=== PATIENT | female | born 1995 | race Caucasian/White ===

== ENCOUNTER 2024-07-25 12:46 | Outpatient (RCR) | payer OTHER, SELFPAY ==
[2024-07-26] MEDS: RHO(D) IMMUNE GLOBULIN 300 MCG/2 ML SYRINGE IM (11:06)
== END 2024-10-23 23:59 | disposition home or self-care (01) ==
LOC: ANHLAB 12:46
PROVIDERS: Visit Provider Obstetrics & Gynecology
DX: Z29.13 Encounter for prophylactic Rho(D) immune globulin (principal); O36.0190 Maternal care for anti-D [Rh] antibodies, unspecified trimester, not applicable or unspecified; Z3A.00 Weeks of gestation of pregnancy not specified
CPT/HCPCS: 36415; 85461; 86850; 86880; 86900; 86901; 90384; 96372; J2790

== ENCOUNTER 2024-10-10 00:47 | Inpatient (IN) | payer OTHER, SELFPAY ==
[2024-10-10] VITALS (213 sets, daily range): BP systolic 87–130; BP diastolic 42–88; PULSE 65–186; RESP 16–18; TEMP 36.7–37.1; O2SAT 79–100; BMI 29.4
[2024-10-10 01:45] LABS: Basophils Absolute Auto 0.1 K/mm3 (0.0-0.1); Basophils Percent Auto 0.5 % (0.2-1.2); Eosinophils Absolute Auto 0.1 K/mm3 (0-0.3); Eosinophils Percent Auto 0.9 % (0-4.4); Hematocrit 33.4 % (37.0-47.0); Hemoglobin 10.9 g/dL (12.0-15.0); Immature Granulocyte Absolute 0.08 K/mm3 (0.00-0.031); Immature Granulocyte Percent A 0.8 % (0-0.5); Lymphocytes Absolute Auto 2.44 K/mm3 (0.9-3.2); Lymphocytes Percent Auto 24.6 % (18.3-44.2); Mean Corpuscular HGB Conc 32.6 g/dl (32-36); Mean Corpuscular Hemoglobin 26.4 pg (26-34); Mean Corpuscular Volume 80.9 fl (80-100); Mean Platelet Volume 11.1 fl (7.4-10.4); Monocytes Absolute Auto 0.8 K/mm3 (0.1-0.6); Monocytes Percent Auto 7.8 % (2.6-8.5); Neutrophils Absolute Auto 6.5 K/mm3 (1.3-6.7); Neutrophils Percent Auto 65.4 % (45.5-73.1); Platelet Count Result 174 k/mm3 (150-375); Red Blood Count 4.13 M/mm3 (4.2-5.4); Red Cell Distribution Width 12.1 % (11.5-14.5); White Blood Count 9.9 K/mm3 (4.5-10.0)
--- NOTE | 2024-10-10 01:50 | LDADM ---
This patient, Sherri Duckworth, was admitted to Labor/Delivery/Recovery 105 on 10/10/24 at 00:47. Plans for labor, pain management and were discussed with patient. Patient/family oriented to hospital policies and general routines including ID bracelet, bed and alarms, visiting hours, pain management, procedures, bathroom and other care routines, personal items, smoking policy, room service/diet and guest tray routines, security routines, and visiting hours. Patient/Family are encouraged to report perceived risks to care and to ask questions if they do not understand what they are told or what they should do. See OBIX for further documentation.
[2024-10-10] MEDS: LACTATED RINGERS 1,000 ML 125 ML IV CONT ×2 (02:10→10:31)
[2024-10-10] MEDS: AMPICILLIN 2 GM/NS 100 ML 2 GM/100 ML BAG IVPB (02:11)
[2024-10-10 02:38] LABS: HIV 1/2 Ab P24 Ag Result Negative (Negative)
[2024-10-10 02:42] LABS: Hepatitis B Surface Antigen Negative (Negative)
[2024-10-10 04:16] LABS: Rapid Plasma Reagin Non-Reactive (NonReactive)
[2024-10-10] MEDS: OXYTOCIN 30 UNITS/NS 500 ML 30 UNITS/500 ML BAG IV CONT (05:40)
--- NOTE | 2024-10-10 05:56 | P.HP_ITS ---
H&P: HPI History of Present Illness Date/Time: 10/10/24 05:56 Chief Complaint: ruptured membranes at term Narrative: 29-year-old 2 para 1 whose last menstrual period was 01/01/2024, EDC is 10/20/2024, confirmed by 10 week ultrasound, presents at 38 weeks gestation with spontaneous rupture membranes prior to admission. She had abnormal NIPT was consulted with Maternal there was question of abnormal chromosomes. She is positive for group B strep which she is Rh negative and received RhoGAM at 28 weeks. [facility] Social History Social History Smoking status: Never smoker Substance use: never Do You Feel Safe in your Home?: Yes Lack of Transportation: No Lack of Food: Never True Current Housing: I Have Housing Concerned About Future Housing: No Difficulty Paying Gas/Electric Bills: No Difficulty Paying for Meds: No Currently Unemployed: No Education: Master's Degree or Higher Difficulty w/ Childcare or Family Care: No Spiritual care concerns: No Meds Home Medications and Allergies Home Medications Medication Instructions Recorded Confirmed Type prenat.vits,petty,ynh-fyol-swhac 1 tablet 09/21/24 History Allergies Allergy/AdvReac Type Severity Reaction Status Date / Time No Known Allergies Allergy Unknown Verified 03/30/16 13:21 Vital Signs Vital Signs - 24 hr 10/10/24 01:10 10/10/24 01:15 10/10/24 01:20 Pulse Rate Blood Pressure Pulse Oximetry 99 100 98 Oxygen Delivery 10/10/24 01:25 10/10/24 01:30 10/10/24 01:35 Pulse Rate Blood Pressure Pulse Oximetry 98 98 98 Oxygen Delivery 10/10/24 01:40 10/10/24 01:45 10/10/24 01:47 Pulse Rate 95 Blood Pressure 102/72 Pulse Oximetry 98 99 Oxygen Delivery 10/10/24 01:50 10/10/24 01:55 10/10/24 02:00 Pulse Rate 103 H Blood Pressure 101/71 Pulse Oximetry 100 99 99 Oxygen Delivery 10/10/24 02:06 10/10/24 02:08 10/10/24 02:13 Pulse Rate Blood Pressure Pulse Oximetry 99 98 98 Oxygen Delivery 10/10/24 02:18 10/10/24 02:23 10/10/24 02:28 Pulse Rate Blood Pressure Pulse Oximetry 97 97 97 Oxygen Delivery 10/10/24 02:30 10/10/24 02:33 10/10/24 02:35 Pulse Rate 107 H Blood Pressure 115/86 Pulse Oximetry 99 99 Oxygen Delivery 10/10/24 02:40 10/10/24 02:49 10/10/24 02:54 Pulse Rate Blood Pressure Pulse Oximetry 100 98 98 Oxygen Delivery 10/10/24 02:59 10/10/24 03:00 10/10/24 03:04 Pulse Rate 87 Blood Pressure 109/69 Pulse Oximetry 98 98 Oxygen Delivery 10/10/24 03:09 10/10/24 03:14 10/10/24 03:19 Pulse Rate Blood Pressure Pulse Oximetry 97 98 98 Oxygen Delivery 10/10/24 03:24 10/10/24 03:29 10/10/24 03:30 Pulse Rate 76 Blood Pressure 105/49 L Pulse Oximetry 98 98 Oxygen Delivery 10/10/24 03:34 10/10/24 03:39 10/10/24 03:44 Pulse Rate Blood Pressure Pulse Oximetry 98 99 98 Oxygen Delivery 10/10/24 03:49 10/10/24 03:54 10/10/24 03:59 Pulse Rate Blood Pressure Pulse Oximetry 98 99 99 Oxygen Delivery 10/10/24 04:00 10/10/24 04:04 10/10/24 04:09 Pulse Rate 74 Blood Pressure 94/49 L Pulse Oximetry 98 99 Oxygen Delivery 10/10/24 04:14 10/10/24 04:19 10/10/24 04:24 Pulse Rate Blood Pressure Pulse Oximetry 100 98 98 Oxygen Delivery 10/10/24 04:29 10/10/24 04:30 10/10/24 04:34 Pulse Rate 93 Blood Pressure 117/72 Pulse Oximetry 98 99 Oxygen Delivery 10/10/24 04:39 10/10/24 04:44 10/10/24 04:49 Pulse Rate Blood Pressure Pulse Oximetry 98 98 98 Oxygen Delivery 10/10/24 04:54 10/10/24 04:59 10/10/24 05:00 Pulse Rate 93 Blood Pressure 112/74 Pulse Oximetry 99 98 Oxygen Delivery 10/10/24 05:04 10/10/24 05:09 10/10/24 05:14 Pulse Rate Blood Pressure Pulse Oximetry 99 98 99 Oxygen Delivery 10/10/24 05:36 10/10/24 05:41 10/10/24 05:46 Pulse Rate 93 Blood Pressure 105/61 Pulse Oximetry 98 99 98 Oxygen Delivery 10/10/24 05:51 10/10/24 02:14 Pulse Rate Blood Pressure Pulse Oximetry 98 Oxygen Delivery Room Air Exam Const: General: cooperative, healthy appearing and comfortable Nutritional Appearance: average body habitus Orientation/consciousness: oriented to person, oriented to place and oriented to time Resp: Effort & Inspection: normal respiratory effort Cardio: Rate: regular rate Rhythm: regular rhythm Heart sounds: S1 normal heart sound present and S2 normal heart sound present GI: Inspection: normal to inspection ( Gravid soft uterus) : Speculum Exam - Vagina: normal appearance of the vagina Speculum Exam - Cervix: normal appearance of the cervix ( cervix 3cm with clear fluid heart tones reassuring) H&P: Results Labs Labs: Short CBC 10/10/24 Range/Units 01:37 WBC 9.9 (4.5-10.0) K/mm3 Hgb 10.9 L (12.0-15.0) g/dL Hct 33.4 L (37.0-47.0) % Plt Count 174 (150-375) k/mm3 Assessment and Plan Assessment and plan (1) Term : Code(s): Z34.90 - Encounter for supervision of normal , unspecified, unspecified trimester Status: Acute (2) Spontaneous rupture of membranes: Status: Acute (3) Positive testing for group B Streptococcus: Code(s): B95.1 - Streptococcus, group B, as the cause of diseases classified elsewhere Status: Acute (4) 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 Spontaneous vaginal delivery is expected. She is an epidural candidate.
[2024-10-10] MEDS: AMPICILLIN 1 GM/NS 50 ML 1 GM/50 ML BAG IVPB ×2 (06:27→10:20)
[2024-10-10 07:56] LABS: OBXCEM ROM Plus Positive (Negative)
--- NOTE | 2024-10-10 09:23 | P.PNAN_ITS ---
Anes - Eval Pre Procedure Procedure: labor epidural Date/Time: 10/10/24 09:23 Surgeon: Jenni Dunbar Preop Diagnosis: Pain during labor Pre Op Diagnosis: Leaking Patient Data Age: 29 Gender: F Height: 1.68 m Weight: 82.7 kg Last Vital Signs Temp 36.8 C 10/10/24 08:30 Pulse 88 10/10/24 09:00 Resp 16 10/10/24 08:30 BP 120/75 10/10/24 09:00 Pulse Ox 95 10/10/24 09:19 O2 Del Method Room Air 10/10/24 02:14 Allergies Allergy/AdvReac Type Severity Reaction Status Date / Time No Known Allergies Allergy Unknown Verified 03/30/16 13:21 Home Medications Medication Instructions Recorded Confirmed Type prenat.vits,petty,jvv-taui-zqiff 1 tablet 09/21/24 History Laboratory Tests 10/10/24 10/10/24 00:58 01:37 WBC 9.9 K/mm3 (4.5-10.0) RBC 4.13 L M/mm3 (4.2-5.4) Hgb 10.9 L g/dL (12.0-15.0) Hct 33.4 L % (37.0-47.0) MCV 80.9 fl (80-100) MCH 26.4 pg (26-34) MCHC 32.6 g/dl (32-36) RDW 12.1 % (11.5-14.5) Plt Count 174 k/mm3 (150-375) MPV 11.1 H fl (7.4-10.4) Immature Gran % (Auto) 0.8 H % (0-0.5) Neut % (Auto) 65.4 % (45.5-73.1) Lymph % (Auto) 24.6 % (18.3-44.2) [place] % (Auto) 7.8 % (2.6-8.5) Eos % (Auto) 0.9 % (0-4.4) Baso % (Auto) 0.5 % (0.2-1.2) Lymph # (Auto) 2.44 K/mm3 (0.9-3.2) [place] # (Auto) 0.8 H K/mm3 (0.1-0.6) Eos # (Auto) 0.1 K/mm3 (0-0.3) Baso # (Auto) 0.1 K/mm3 (0.0-0.1) Abs Immat Gran (auto) 0.08 H K/mm3 (0.00-0.031) Absolute Neuts (auto) 6.5 K/mm3 (1.3-6.7) Absolute Nucleated RBC 0.000 K/mm3 (0.0-0.012) Nucleated RBC % 0.0 % (0.0-0.2) Membranes Rupture Rom plus positive (Negative) RPR Non-reactive (NonReactive) Hep Bs Antigen Negative (Negative) HIV 1&2 Ab/P24 Ag 4thGn Negative (Negative) Blood Type A Negative Antibody Screen Negative Patient hx anesthesia problems: none Family hx anesthesia problems: none Results Review: All pre-operative results and documents have been reviewed as part of the pre- operative evaluation. [facility] Social History Social History Smoking status: Never smoker Substance use: never Do You Feel Safe in your Home?: Yes Lack of Transportation: No Lack of Food: Never True Current Housing: I Have Housing Concerned About Future Housing: No Difficulty Paying Gas/Electric Bills: No Difficulty Paying for Meds: No Currently Unemployed: No Education: Master's Degree or Higher Difficulty w/ Childcare or Family Care: No Spiritual care concerns: No Exam Day of Procedure 10/10/24 09:23 Patient weight: normal Heart: regular rate and rhythm Lungs: clear to auscultation Airway: Mallampati scale class II Neurological: alert and oriented
[2024-10-10] MEDS: ONDANSETRON INJ 4 MG/2 ML VIAL IV PUSH (11:50)
--- NOTE | 2024-10-10 14:16 | P.PCNOB_ITS ---
OB - Vaginal Delivery Note Procedure Delivery date: 10/10/24 Events: Positive Group B Strep (GBS) Delivery monitor: External FHT and Internal Uterine Route of delivery: Episiotomy description: None Laceration Description: None Quantitative Blood Loss (ml): 61 Anesthesia type: Epidural Disposition: Floor Complications: No immediate complications Narrative: Patient was admitted In labor labor early a.m. 10/10/2024. She had artificial rupture membranes performed and Pitocin augmentation begun. She had ruptured about 12:00 p.m. in the a.m.. she progressed unremarkable 1st stage of labor and got to completely dilated when she was complete she pushed delivered head spontaneously in the JOEL position. Anterior posterior shoulder delivered spontaneously. Cord clamped and cut and placed in warmer given Apgars of 8 [id number] 9 [id number]. Cord blood was then drawn placenta delivered intact spontaneously. 20units of Pitocin were then placed in the IV to help firm the uterus. The vagina was inspected noted be free of tears or lacerations blood loss was estimated at61cc. All sponge, needle, instrument counts were correct. There were no immediate complications. She did receive 2 doses of ampicillin prophylactically for group B strep [place] Baby Date of : 10/10/24 Time of : 14:08 Gestational Age by Date: 38 gender: Male presentation: vertex position: Right Occiput Anterior Placenta delivery description: Spontaneous Cord Vessel Description: 3 Vessels score one minute: 8 score five minutes: 9 Narrative: ampicillin x2 for group B strep
--- NOTE | 2024-10-10 14:19 | P.DS_ITS ---
DS: Admitting Diagnosis Discharge Date 10/12/2024 Admitting Diagnosis term positive group B strep DS: Discharge Diagnosis Discharge Diagnosis (1) Positive testing for group B Streptococcus: Code(s): B95.1 - Streptococcus, group B, as the cause of diseases classified elsewhere Status: Acute (2) Chromosomal abnormality: Code(s): Q99.9 - Chromosomal abnormality, unspecified Status: Acute (3) Spontaneous rupture of membranes: Status: Acute (4) Term : Code(s): Z34.90 - Encounter for supervision of normal , unspecified, unspecified trimester Status: Acute DS: Summary Hospital Course Reason for hospitalization: patient was admitted in active labor early a.m. 10/10/2024 and underwent spontaneous vaginal delivery at 2:08 p.m. with epidural anesthesia she has received gas would group B strep prophylaxis. Hospital Course: Patient's hospital course unremarkable she remained afebrile. She was up, voiding without difficulty, eating regular diet, ambulating, and generally without complaints. Time Spent with Patient Time attestation: Total time spent providing and/or coordinating discharge services: Exam Const: General: cooperative, healthy appearing and comfortable Nutritional Appearance: average body habitus Orientation/consciousness: oriented to person, oriented to place and oriented to time HENMT: Head: normal to inspection Resp: Effort & Inspection: normal respiratory effort Cardio: Rate: regular rate Rhythm: regular rhythm Heart sounds: S1 normal heart sound present and S2 normal heart sound present GI: Inspection: normal to inspection ( Fundus firm below the umbilicus) DS: Data Data Completed and Pending Labs on day of discharge: Labs from last 24 hours 10/10/24 10/10/24 01:37 00:58 WBC 9.9 RBC 4.13 L Hgb 10.9 L Hct 33.4 L MCV 80.9 MCH 26.4 MCHC 32.6 RDW 12.1 Plt Count 174 MPV 11.1 H Immature Gran % (Auto) 0.8 H Neut % (Auto) 65.4 Lymph % (Auto) 24.6 [place] % (Auto) 7.8 Eos % (Auto) 0.9 Baso % (Auto) 0.5 Lymph # (Auto) 2.44 [place] # (Auto) 0.8 H Eos # (Auto) 0.1 Baso # (Auto) 0.1 Abs Immat Gran (auto) 0.08 H Absolute Neuts (auto) 6.5 Absolute Nucleated RBC 0.000 Nucleated RBC % 0.0 Membranes Rupture Rom plus positive RPR Non-reactive Hep Bs Antigen Negative HIV 1&2 Ab/P24 Ag 4thGn Negative Blood Type A Negative Antibody Screen Negative Discharge Plan Discharge Attending physician on discharge: Asif Paul Discharging Clinician: Asif Paul Patient Disposition: Home, Self-Care Activity: may shower, no straining and pelvic rest Diet: heart healthy Wound Care Instructions: follow printed instructions Patient Instructions: Antibiotic Form Stand Alone Forms: General Discharge Information Follow-up/Referrals: Asif Paul MD [Physician] - Discharge Medications: Continued Vitamin Tablet 1 tablet Date of admission: 10/10/24 00:47 Primary Care Provider: UNKNOWN,DOCTOR Admitting Provider: Asif Paul Attending physician on admission: Asif Paul Condition: Stable
[2024-10-10] MEDS: OXYTOCIN 30 UNITS/NS 500 ML 30 UNITS/500 ML BAG 125 UNITS IV CONT (15:00)
--- NOTE | 2024-10-10 17:00 | OBPPTRN ---
Patient transferred to post room # 280 via wheelchair. Support person present. Oriented to unit, room, information board, rooming in, admission packet and security measures. Patient verbalizes understanding.
[2024-10-10] MEDS: IBUPROFEN 600 MG TABLET PO (18:37)
[2024-10-10] MEDS: ACETAMINOPHEN 325 MG TABLET 650 MG PO (18:37)
[2024-10-11 00:15] VITALS: BP 116/74; PULSE 88; RESP 16; TEMP 36.9; O2SAT 100
[2024-10-11] MEDS: ACETAMINOPHEN 325 MG TABLET 650 MG PO ×3 (00:34→21:34)
[2024-10-11] MEDS: IBUPROFEN 600 MG TABLET PO ×3 (00:34→21:34)
[2024-10-11 05:57] LABS: Hematocrit 32.5 % (37.0-47.0)
--- NOTE | 2024-10-11 06:38 | P.PNOB_ITS ---
OB - PN: Subj Subjective Date/time seen: 10/11/24 06:38 Patient comments: no complaints and pain well controlled baby status: doing well OB - PN: Obj Data Labs 10/11/24 04:58 Labs: Laboratory Results - last 24 hr 10/10/24 10/11/24 00:58 04:58 Hgb 10.0 L Hct 32.5 L Membranes Rupture Rom plus positive OB - PN A/P Plan day: 1 Plan: routine care Time Spent With Patient Time: Total time spent is greater than 50% in coordination of care (as documented) at patient's floor/unit and/or counseling patient: Time with patient: less than 15 minutes Exam Const: General: cooperative, healthy appearing and comfortable Nutritional Appearance: average body habitus Orientation/consciousness: oriented to perso n, oriented to place and oriented to time Resp: Effort & Inspection: normal respiratory effort Cardio: Rate: regular rate Rhythm: regular rhythm Heart sounds: S1 normal heart sound present and S2 normal heart sound present GI: Inspection: normal to inspection
[2024-10-11 07:40] VITALS: BP 103/67; PULSE 81; RESP 18; TEMP 36.2; O2SAT 99
[2024-10-11] MEDS: DOCUSATE SODIUM 100 MG CAPSULE PO (07:42)
[2024-10-11] MEDS: MULTIVIT/MIN/PREN/FOL AC/IRON TABLET 1 TAB PO (07:42)
--- NOTE | 2024-10-11 07:55 | WPDANLDPN2 ---
Anes-Prog Note L&D Date/Time: 10/11/24 07:55 Comfortable throughout: labor and delivery Neuraxial method: epidural Epidural/Spinal procedure site: clean & non-tender Neuro status: Neuro function grossly intact. Cardiovascular status: normal Respiratory status: normal Airway patency: baseline Mental status: baseline Post-Op hydration status: normal Vital Signs: Last Vital Signs Temp 36.9 C 10/11/24 00:15 Pulse 88 10/11/24 00:15 Resp 16 10/11/24 00:15 BP 116/74 10/11/24 00:15 Pulse Ox 100 10/11/24 00:15 O2 Del Method Room Air 10/10/24 02:14 Pain score (VAS): 3/10 I/O: Intake & Output 10/10/24 10/10/24 10/11/24 15:59 23:59 07:59 Intake Total 1050 100 Output Total 61 700 Balance 989 -600 Post-procedural complaints: none Patient feedback: Patient satisfied with anesthetic care.
[2024-10-11 12:25] VITALS: BP 104/65; PULSE 96; RESP 16; TEMP 36.4; O2SAT 99
[2024-10-11 21:26] VITALS: BP 104/67; PULSE 74; RESP 16; TEMP 36.8; O2SAT 99
--- NOTE | 2024-10-12 05:52 | P.PNOB_ITS ---
OB - PN: Subj Subjective Date/time seen: 10/12/24 05:52 Patient comments: no complaints and pain well controlled baby status: doing well OB - PN: Obj Data Labs 10/11/24 04:58 Labs: Laboratory Results - last 24 hr 10/11/24 04:58 Hgb 10.0 L Hct 32.5 L OB - PN A/P Plan day: 2 Plan: routine care, discharge home and follow up 6 weeks Time Spent With Patient Time: Total time spent is greater than 50% in coordination of care (as documented) at patient's floor/unit and/or counseling patient: Time with patient: less than 15 minutes Exam Const: General: cooperative, healthy appearing and comfortable Nutritional Appearance: average body habitus Orientation/consciousness: oriented to person, oriented to place and oriented to time Resp: Effort & Inspection: normal respiratory effort Cardio: Rate: regular rate Rhythm: regular rhythm Heart sounds: S1 n ormal heart sound present and S2 normal heart sound present GI: Inspection: normal to inspection
[2024-10-12 07:30] VITALS: BP 100/71; PULSE 65; RESP 18; TEMP 36.5; O2SAT 99
[2024-10-12] MEDS: ACETAMINOPHEN 325 MG TABLET 650 MG PO (08:40)
[2024-10-12] MEDS: IBUPROFEN 600 MG TABLET PO (08:40)
[2024-10-12] MEDS: MULTIVIT/MIN/PREN/FOL AC/IRON TABLET 1 TAB PO (08:41)
[2024-10-12] MEDS: MEASLES,MUMPS,RUBELLA VACCINE 0.5 ML VIAL SUB-Q (08:41)
[2024-10-12] MEDS: DOCUSATE SODIUM 100 MG CAPSULE PO (08:41)
[2024-10-14 11:27] VITALS: BP 111/75; PULSE 79; RESP 18; TEMP 36.7; O2SAT 99
== END 2024-10-12 11:13 | disposition home or self-care (01) | DRG 807 ==
LOC: ANHLDR 14:21 → ANHOB2 17:03
PROVIDERS: Admitting Provider Obstetrics & Gynecology; Visit Provider Obstetrics & Gynecology
DX: O99.824 Streptococcus B carrier state complicating childbirth (principal); Z37.0 Single live birth; Z3A.38 38 weeks gestation of pregnancy; O26.893 Other specified pregnancy related conditions, third trimester; Z67.91 Unspecified blood type, Rh negative; Q99.9 Chromosomal abnormality, unspecified
CPT/HCPCS: 36415; 84112; 85014; 85018; 85025; 86592; 86703; 86850; 86900; 86901; 87340; 90710; A9270; G0432; J0290; J2405; J2590; J2795; J7120